=== PATIENT | female | born 1945 | race Caucasian/White ===

== ENCOUNTER 2019-09-25 11:48 | Outpatient (RCR) | payer MEDICARE, SELFPAY ==
[2019-07-14 12:22] LABS: INR 2.4; Prothrombin Time 24.8 Seconds (9.64-11.0)
[2019-08-14 14:05] LABS: INR 1.5; Prothrombin Time 15.4 Seconds (9.64-11.0)
[2019-08-20 14:28] LABS: Prothrombin Time 10.9 Seconds (9.64-11.0)
[2019-08-27 14:14] LABS: Prothrombin Time 20.8 Seconds (9.64-11.0)
[2019-09-25 12:32] LABS: INR 1.6
== END 2019-10-12 23:59 | disposition home or self-care (01) ==
LOC: CHSLAB 11:48
PROVIDERS: Visit Provider Internal Medicine
DX: I26.99 Other pulmonary embolism without acute cor pulmonale (principal)
CPT/HCPCS: 36415; 85610

== ENCOUNTER 2020-01-19 12:42 | Outpatient (RCR) | payer MEDICARE, SELFPAY ==
[2019-10-26 14:58] LABS: Prothrombin Time 29.9 Seconds (9.64-11.0)
[2019-11-24 10:11] LABS: INR 3.2; Prothrombin Time 31.7 Seconds (9.64-11.0)
[2019-12-22 11:31] LABS: INR 3.9; Prothrombin Time 38.8 Seconds (9.64-11.0)
[2020-01-19 13:02] LABS: INR 2.3; Prothrombin Time 22.7 Seconds (9.64-11.0)
== END 2020-01-24 23:59 | disposition home or self-care (01) ==
LOC: CHSLAB 12:42
PROVIDERS: PCP Internal Medicine; Visit Provider Internal Medicine
DX: I26.99 Other pulmonary embolism without acute cor pulmonale (principal)
CPT/HCPCS: 36415; 85610

== ENCOUNTER 2020-05-05 14:19 | Outpatient (RCR) | payer MEDICARE, SELFPAY ==
[2020-02-16 11:03] LABS: Prothrombin Time 20.1 Seconds (9.64-11.0)
[2020-03-08 14:05] LABS: INR 2.8; Prothrombin Time 28.3 Seconds (9.64-11.0)
[2020-04-06 16:46] LABS: INR 2.8; Prothrombin Time 27.9 Seconds (9.64-11.0)
[2020-05-05 14:40] LABS: INR 3.7; Prothrombin Time 36.7 Seconds (9.64-11.0)
== END 2020-05-16 23:59 | disposition home or self-care (01) ==
LOC: CHSLAB 14:19
PROVIDERS: PCP Internal Medicine; Visit Provider Internal Medicine
DX: I26.99 Other pulmonary embolism without acute cor pulmonale (principal)
CPT/HCPCS: 36415; 85610

== ENCOUNTER 2020-06-24 08:06 | Outpatient (CLI) | payer MEDICARE, SELFPAY ==
[2020-06-24 09:02] LABS: Alanine Aminotransferase 25 U/L (14-59); Alkaline Phosphatase 89 U/L (46-116); Anion Gap 4 mmol/L (8-16); Aspartate Amino Transferase 14 U/L (15-37); Bilirubin,Total 0.4 mg/dL (0.00-1.00); Blood Urea Nitrogen 16 mg/dL (7-18); Calcium 9.9 mg/dL (8.5-10.1); Carbon Dioxide 31 mmol/L (21-32); Chloride 106 mmol/L (98-108); Cholesterol 292 mg/dL (0-200); Estimated Glomerular Filt Rate > 60; Glucose 95 mg/dL (70-99); HDL Direct 115 mg/dL (40-60); LDL Cholesterol Calculated 157 mg/dL (<130); Osmolality Calculated 293 mOsm/kg (285-295); Potassium 4.2 mmol/L (3.5-5.1); Sodium 141 mmol/L (136-145); Total Protein 7.1 g/dL (6.4-8.2); Triglycerides 102 mg/dL (0-150)
[2020-06-28 12:09] LABS: Parathyroid Intact 65 pg/mL (14-64)
== END 2020-06-24 08:07 | disposition home or self-care (01) ==
LOC: CHSLAB 08:08
PROVIDERS: PCP Internal Medicine; Visit Provider Internal Medicine
DX: E78.2 Mixed hyperlipidemia (principal); E83.52 Hypercalcemia
CPT/HCPCS: 36415; 80053; 80061; 83970

== ENCOUNTER 2020-07-29 12:09 | Outpatient (RCR) | payer MEDICARE, SELFPAY ==
[2020-05-18 11:03] LABS: INR 1.8; Prothrombin Time 17.8 Seconds (9.64-11.0)
[2020-06-01 10:53] LABS: INR 2.6; Prothrombin Time 26.1 Seconds (9.64-11.0)
[2020-06-30 15:57] LABS: INR 2.4; Prothrombin Time 24.3 Seconds (9.64-11.0)
[2020-07-29 12:34] LABS: INR 2.3; Prothrombin Time 23.9 Seconds (9.50-12.10)
== END 2020-08-16 23:59 | disposition home or self-care (01) ==
LOC: CHSLAB 12:09
PROVIDERS: PCP Internal Medicine; Visit Provider Internal Medicine
DX: I26.99 Other pulmonary embolism without acute cor pulmonale (principal)
CPT/HCPCS: 36415; 85610

== ENCOUNTER 2020-09-29 13:53 | Outpatient (RCR) | payer MEDICARE, SELFPAY ==
[2020-08-29 12:29] LABS: INR 2.2
[2020-09-29 14:18] LABS: INR 2.2; Prothrombin Time 22.7 Seconds (9.50-12.10)
== END 2020-11-27 23:59 | disposition home or self-care (01) ==
LOC: CHSLAB 13:53
PROVIDERS: PCP Internal Medicine; Visit Provider Internal Medicine
DX: I26.99 Other pulmonary embolism without acute cor pulmonale (principal)
CPT/HCPCS: 36415; 85610

== ENCOUNTER 2021-01-03 14:41 | Outpatient (CLI) | payer MEDICARE, SELFPAY ==
[2021-01-07 19:45] LABS: Vitamin D 25 Hydroxy 37 ng/mL (30-100)
== END 2021-01-03 14:42 | disposition home or self-care (01) ==
LOC: CHSLAB 14:44
PROVIDERS: PCP Internal Medicine
DX: E55.9 Vitamin D deficiency, unspecified (principal)
CPT/HCPCS: 36415; 82306

== ENCOUNTER 2023-02-04 10:06 | Outpatient (RCR) | payer MEDICARE, SELFPAY ==
--- NOTE | 2023-02-04 11:32 | PTOPEVAL1 ---
Assessment and note entered by Corazon Verde DPT Evaluation Information Assessment Status Evaluation Diagnosis R hip pain Onset 01/29/23 Subjective Information Patient reports R hip pain that started a few weeks ago with no injury. She reports pain is at the joint and some days are worse than other. She denies any radiating pain. She had x-rays that did not have any findings. She reports difficulty with walking, getting in and out of the car and putting on her socks. She denies this issue prior to onset of pain. Reported Pain Level Pain Score 7: Self Report Assessment PT Clinical Summary Patient is a 77 year old female who presents to PT with R hip pain. Patient demonstrates decreased B hip strength, decreased mobility of the piriformis R>L and impaired gait mechanics limiting her ability to ambulate prolonged distances, get in and out of a car and dressing tasks. Patient would benfit from skilled PT to address impairments and return to PLOF. Plan of Care Interventions Electrical Stimulation,Gait Training,Hot Pack/Cold Pack,Manual Therapy,Mechanical Traction,Neuro Re- education,Patient/Caregiver Educati,Therapeutic Activities,Therapeutic Exercise PT Services Indicated Yes Treatment Frequency and 2x weekly for 12 visits Duration These treatments will address the objective and functional deficits as defined above. The patient will be advanced safely and appropriately in order for the patient to progress towards his/her prior level of function. Additional exercises will be introduced and as well as a comprehensive home exercise program upon discharge, if needed, ?to ensure carryover of functional gains achieved in the clinic. This treatment plan has been reviewed and agreement upon by the patient.
--- NOTE | 2023-02-04 11:32 | OPREHPOC ---
Outpatient Therapy Plan of Care This is a Multidisciplinary Plan of Care that may contain components documented by all disciplines (PT, OT, and ST.) PT Problem 1 PT Problem #1 Knowledge Deficit PT Goal 1 Goal Patient to demonstrate independence with HEP Target Visit 12 PT Problem 2 PT Problem #2 Pain PT Goal 1 Goal 1.Patient to report ability to ambulate >15 min without increase in R hip pain Target Visit 12 PT Problem 3 PT Problem #3 Impaired Strength PT Goal 1 Goal Patient to demonstrate 4+/5 strength of B hip to improve ability to ambulate prolonged distances without R hip drop Target Visit 12 PT Problem 4 PT Problem #4 Impaired Functional Mobil PT Goal 1 Goal 1. Patient to report ability to get into and out of the car with no increase in pain 2. Patient to report ability to don socks at PLOF Target Visit 12
--- NOTE | 2023-03-07 10:51 | PTOPPROGNS ---
Assessment and note entered by Merna Price, PT Evaluation Information Assessment Status Progress Diagnosis R hip pain Onset 01/29/23 Subjective Information Jami Steel reports her right hip has not had pain recently. She reports she does not feel limited with her daily activities due to her hip. She is able to go up and down stairs, don socks and shoes, and walk without difficulty. She is having lower back pain with bending over and neck pain when she turns her head to the side. She notes increased low back pain with bending at the waist which makes getting into a car difficult. Assessment PT Clinical Summary Jami Steel has completed 10 skilled PT visits for R hip pain. She is reporting her right hip pain has resolved and she notes better strength in her hip. She has been experiencing low back pain and neck pain recently. She objectively demonstrates improved hip and knee strength, improved hip flexibility, and improved balance. She continues to demonstrate decreased core strength and decreased lumbar AROM. She will continue to benefit from skilled PT to further address ongoing deficits. Plan of Care Interventions Electrical Stimulation,Hot Pack/Cold Pack,Patient/ Caregiver Educati,Therapeutic Activities, Therapeutic Exercise PT Services Indicated Yes Treatment Frequency and Continue current POC for 2 more visits. Duration These treatments will address the objective and functional deficits as defined above. The patient will be advanced safely and appropriately in order for the patient to progress towards his/her prior level of function. Additional exercises will be introduced and as well as a comprehensive home exercise program upon discharge, if needed, ?to ensure carryover of functional gains achieved in the clinic. This treatment plan has been reviewed and agreement upon by the patient.
--- NOTE | 2023-03-07 10:51 | OPREHPOC ---
Outpatient Therapy Plan of Care This is a Multidisciplinary Plan of Care that may contain components documented by all disciplines (PT, OT, and ST.) PT Problem 1 PT Problem #1 Knowledge Deficit PT Goal 1 Goal Patient to demonstrate independence with HEP Target Visit 12 Progress Partially Met PT Problem 2 PT Problem #2 Pain PT Goal 1 Goal 1.Patient to report ability to ambulate >15 min without increase in R hip pain Target Visit 12 Progress Met PT Problem 3 PT Problem #3 Impaired Strength PT Goal 1 Goal Patient to demonstrate 4+/5 strength of B hip to improve ability to ambulate prolonged distances without R hip drop Target Visit 12 Progress Partially Met PT Problem 4 PT Problem #4 Impaired Functional Mobil PT Goal 1 Goal 1. Patient to report ability to get into and out of the car with no increase in pain 2. Patient to report ability to don socks at PLOF Target Visit 12 Progress Partially Met
--- NOTE | 2023-03-15 10:05 | PTOPDC ---
Assessment and note entered by JT File, PT Evaluation Information Assessment Status Discharge Diagnosis R hip pain Onset 01/29/23 Subjective Information patient reports she no longer has issues with the R hip. she reports she is now complicated only by her neck and back. she reports she is going to see the MD next week about a order to treat the neck and back in PT. she reports no issues dressing or getting into and out of a car any longer. Reported Pain Level Pain Score 0: Self Report Assessment PT Clinical Summary mrs. lockwood presents to skilled PT for her 12th skilled therapy visit. as of this date, she has met all goals for her R hip. she no longer has pain, and is not impacted in any ADL's or movements due to the R hip. she will DC skilled PT today, and continue with HEP exercises fot the R hip independent at home. patient plans to return to MD for an order for PT on the neck and back later this month. Plan of Care PT Services Indicated Yes
--- NOTE | 2023-03-15 10:05 | OPREHPOC ---
Outpatient Therapy Plan of Care This is a Multidisciplinary Plan of Care that may contain components documented by all disciplines (PT, OT, and ST.) PT Problem 1 PT Problem #1 Knowledge Deficit PT Goal 1 Goal Patient to demonstrate independence with HEP Target Visit 12 Progress Met PT Problem 2 PT Problem #2 Pain PT Goal 1 Goal 1.Patient to report ability to ambulate >15 min without increase in R hip pain Target Visit 12 Progress Met PT Problem 3 PT Problem #3 Impaired Strength PT Goal 1 Goal Patient to demonstrate 4+/5 strength of B hip to improve ability to ambulate prolonged distances without R hip drop Target Visit 12 Progress Met PT Problem 4 PT Problem #4 Impaired Functional Mobil PT Goal 1 Goal 1. Patient to report ability to get into and out of the car with no increase in pain 2. Patient to report ability to don socks at PLOF Target Visit 12 Progress Met
== END 2023-03-15 10:52 | disposition home or self-care (01) ==
LOC: CHSPT 10:06
DX: M25.551 Pain in right hip (principal)
CPT/HCPCS: 97014; 97110; 97161; 97530; G0283

== ENCOUNTER 2023-04-02 10:53 | Outpatient (RCR) | payer MEDICARE, SELFPAY ==
--- NOTE | 2023-04-02 11:56 | OPREHPOC ---
Outpatient Therapy Plan of Care This is a Multidisciplinary Plan of Care that may contain components documented by all disciplines (PT, OT, and ST.) PT Problem 1 PT Problem #1 Knowledge Deficit PT Goal 1 Goal Patient to demonstrate independence with HEP Target Visit 5 PT Problem 2 PT Problem #2 Impaired Range of Motion PT Goal 1 Goal Patient to achieve 60 deg of B cervical rotation to check blind spot when driving Target Visit 10 PT Problem 3 PT Problem #3 Impaired Functional Mobil PT Goal 1 Goal Patient to report ability to get into and out of her car with no increase in pain Target Visit 10 PT Problem 4 PT Problem #4 Pain PT Goal 1 Goal Patient to report highest pain at 1/10 with turning her head to drive Target Visit 10
--- NOTE | 2023-04-02 12:59 | PTOPEVAL1 ---
Assessment and note entered by Corazon Verde DPT Evaluation Information Assessment Status Evaluation Diagnosis neck pain Onset 04/01/23 Subjective Information Patient reports that over the last 6 months she has noticed increased difficulty with neck range of motion. She reports she has difficulty with look over her shoulder to drive, getting into the car and looking up. She reports pain only occurs with end ranges of motion. She denies any injury. Patient is retired but completes house and yard work. Reported Pain Level Pain Score 0: Self Report Assessment PT Clinical Summary Patient is a 77 year old female who presents to PT with cervical pain and tightness. Patient demonstrates hypomobility of the cervical spine, decreased flexibility of the B upper traps and decreased cervical ROM limiting her ability to get in and out of the car and look over her shoulder to drive. Patient would benefit from skilled PT to address impairments and return to PLOF. Plan of Care Interventions Electrical Stimulation,Gait Training,Hot Pack/Cold Pack,Manual Therapy,Mechanical Traction,Neuro Re- education,Patient/Caregiver Educati,Therapeutic Activities,Therapeutic Exercise PT Services Indicated Yes Treatment Frequency and 2x weekly for 10 visits Duration These treatments will address the objective and functional deficits as defined above. The patient will be advanced safely and appropriately in order for the patient to progress towards his/her prior level of function. Additional exercises will be introduced and as well as a comprehensive home exercise program upon discharge, if needed, ?to ensure carryover of functional gains achieved in the clinic. This treatment plan has been reviewed and agreement upon by the patient.
--- NOTE | 2023-05-09 10:50 | OPREHPOC ---
Outpatient Therapy Plan of Care This is a Multidisciplinary Plan of Care that may contain components documented by all disciplines (PT, OT, and ST.) PT Problem 1 PT Problem #1 Knowledge Deficit PT Goal 1 Goal Patient to demonstrate independence with HEP Target Visit 5 Progress Met PT Problem 2 PT Problem #2 Impaired Range of Motion PT Goal 1 Goal Patient to achieve 60 deg of B cervical rotation to check blind spot when driving Target Visit 14 Comment continue PT Problem 3 PT Problem #3 Impaired Functional Mobil PT Goal 1 Goal Patient to report ability to get into and out of her car with no increase in pain Target Visit 10 Progress Met PT Problem 4 PT Problem #4 Pain PT Goal 1 Goal Patient to report highest pain at 1/10 with turning her head to drive Target Visit 14 Progress Partially Met Comment continue
--- NOTE | 2023-05-09 10:51 | PTOPREEVAL ---
Assessment and note entered by Corazon Verde DPT Evaluation Information Assessment Status Re-evaluation Diagnosis neck pain Onset 04/01/23 Subjective Information Patient reports she has improved since starting PT . She reports she can look over her shoulder when driving without turning her whole body. She reports pain at end ranges of motions and some pain with sleeping. She reports independence with HEP. Reported Pain Level Pain Score 0: Self Report Assessment PT Clinical Summary Patient has been seen for 10 visits of skilled PT with great progress towards goals. Patient met goal for HEP and getting into and out of car with decreased pain levels but continues to have pain at end range with looking over her shoulder when driving. She does demonstrate objective improvement with B cervical ROM. Patient would benefit from continued skilled PT 1x weekly to address remaining impairments and return to PLOF. Plan of Care Interventions Electrical Stimulation,Gait Training,Hot Pack/Cold Pack,Manual Therapy,Mechanical Traction,Neuro Re- education,Patient/Caregiver Educati,Therapeutic Activities,Therapeutic Exercise PT Services Indicated Yes Treatment Frequency and continue 1x weekly for 4 visits Duration These treatments will address the objective and functional deficits as defined above. The patient will be advanced safely and appropriately in order for the patient to progress towards his/her prior level of function. Additional exercises will be introduced and as well as a comprehensive home exercise program upon discharge, if needed, ?to ensure carryover of functional gains achieved in the clinic. This treatment plan has been reviewed and agreement upon by the patient.
--- NOTE | 2023-06-06 11:26 | OPREHPOC ---
Outpatient Therapy Plan of Care This is a Multidisciplinary Plan of Care that may contain components documented by all disciplines (PT, OT, and ST.) PT Problem 1 PT Problem #1 Knowledge Deficit PT Goal 1 Goal Patient to demonstrate independence with HEP Target Visit 5 Progress Met PT Problem 2 PT Problem #2 Impaired Range of Motion PT Goal 1 Goal Patient to achieve 60 deg of B cervical rotation to check blind spot when driving Target Visit 14 Progress Partially Met Comment . PT Problem 3 PT Problem #3 Impaired Functional Mobil PT Goal 1 Goal Patient to report ability to get into and out of her car with no increase in pain Target Visit 10 Progress Met PT Problem 4 PT Problem #4 Pain PT Goal 1 Goal Patient to report highest pain at 1/10 with turning her head to drive Target Visit 14 Progress Met Comment .
--- NOTE | 2023-06-06 11:26 | PTOPDC ---
Assessment and note entered by Corazon Verde DPT Evaluation Information Assessment Status Re-evaluation Diagnosis neck pain Onset 04/01/23 Subjective Information Patient reports she has been able to return to sleeping and sewing without pain. She reports she is independent with HEP Reported Pain Level Pain Score 0: Self Report Assessment PT Clinical Summary Mrs. Steel has been seen for 14 visits of skilled PT. She met all goals during POC. She has been able to return to driving, sewing and sleeping with no increase in pain. She is independent with HEP. She is appropriate for DC at this time. Plan of Care PT Services Indicated No
== END 2023-06-06 16:29 | disposition home or self-care (01) ==
LOC: CHSPT 10:53
DX: M54.2 Cervicalgia (principal)
CPT/HCPCS: 97014; 97110; 97140; 97150; 97161; G0283